=== PATIENT | female | born 2000 | race Caucasian/White ===

== ENCOUNTER 2020-04-25 16:34 | Emergency (ER) | payer BC ==
[2020-04-25 17:01] VITALS: BP 124/71; PULSE 72; TEMP 98.1; BMI 23.3
== END 2020-04-25 17:30 | disposition home or self-care (01) ==
LOC: JERFT 16:34 → JER 16:34 → JERFT 17:30
DX: S09.90XA Unspecified injury of head, initial encounter (principal)
CPT/HCPCS: 99283-25

== ENCOUNTER 2020-06-21 14:09 | Emergency (ER) | payer BC ==
[2020-06-21 14:36] VITALS: BP 147/83; PULSE 96; BMI 24.2
== END 2020-06-21 17:10 | disposition home or self-care (01) ==
LOC: JER 14:09
DX: S30.0XXA Contusion of lower back and pelvis, initial encounter (principal)
CPT/HCPCS: 71111-TC-FY; 72070-TC-FY; 72100-TC-FY; 84703; 99285-25